=== PATIENT | female | born 1960 | race African-American/Black ===

== ENCOUNTER 2016-08-24 07:41 | Observation (INO) | payer BC ==
[2016-08-24] VITALS (9 sets, daily range): BP systolic 106–129; BP diastolic 70–80
[~2016-08-24] VITALS: Ht 168.9 cm; Wt 88.5 kg
[~2016-08-24 07:41] MED LIST: BIOT1TAB12 PO; CHOL10003 PO; CINN500C PO; COCO1000 PO; FENTANYL PF 100 MCG/2 ML VIAL. IV PRN; IV RINGERS,LACTATED 1000ML 1,000 ML IV SCH; LIDOCAINE 1% 1 ML SYRINGE. ID PRN; MULT-246 PO; OMEG1CAP16 PO; ONDANSETRON PF 4 MG/2 ML VIAL. IV PRN; PROCHLORPERAZINE 10 MG/2 ML VIAL. IV PRN; VIT1TABL43 PO
[2016-08-24] MEDS ORDERED: ACETAMINOPHEN INTRAVENOUS 100 ML IV ONE (07:55)
[2016-08-24] MEDS ORDERED: MIDAZOLAM HCL 2 MG/2 ML VIAL. ONE (08:12)
[2016-08-24] MEDS ORDERED: LIDOCAINE 2% 100 MG/5 ML DISP.SYRIN. ONE (08:12)
[2016-08-24] MEDS ORDERED: ROCURONIUM 50 MG/5 ML VIAL. ONE (08:12)
[2016-08-24] MEDS ORDERED: PROPOFOL 20 ML IV ONE (08:12)
[2016-08-24] MEDS ORDERED: FENTANYL PF 250 MCG/5 ML VIAL. ONE (08:12)
[2016-08-24] MEDS ORDERED: DEXAMETHASONE SOD PHOS 20 MG/5 ML VIAL. ONE (08:13)
[2016-08-24] MEDS ORDERED: ONDANSETRON PF 4 MG/2 ML VIAL. ONE (08:13)
[2016-08-24 08:28] LABS: BASO % 1 % (0-3); EOS % 4 % (0-3); HEMATOCRIT 41.1 % (36.0-47.0); HEMOGLOBIN 13.9 g/dL (12.0-15.5); LYMPH # 2.5 x10^3/uL (1.0-4.8); LYMPH % 42 % (24-48); MEAN CORPUSCULAR HEMOGLOBIN 31 pg (25-35); MEAN CORPUSCULAR HGB CONC 34 g/dL (31-37); MEAN CORPUSCULAR VOLUME 90 fL (79-100); MONO % 11 % (0-9); NEUT % 43 % (31-73); PLATELET COUNT 215 x10^3/uL (140-400); RED BLOOD COUNT 4.54 x10^6/uL (3.50-5.40); RED CELL DISTRIBUTION WIDTH 13.3 % (11.5-14.5); WHITE BLOOD COUNT 5.9 x10^3/uL (4.0-11.0)
[2016-08-24] MEDS ORDERED: CLINDAMYCIN 600MG PREMIX 50 ML IV ONE (08:30)
[2016-08-24] MEDS ORDERED: BUPIVACAINE-EPI 0.25%-1:200000 50 ML VIAL. INJ ONE (09:27)
[2016-08-24] MEDS ORDERED: LIDOCAINE 1%/EPI 1:100,000 20 ML VIAL. IJ ONE (09:27)
[2016-08-24] MEDS ORDERED: ESTROGENS, CONJ VAGINAL CREAM 30GM TUBE. VG ONE (10:10)
[2016-08-24] MEDS ORDERED: NEOSTIGMINE METHYLSULFATE 5 MG/5 ML SYRINGE. ONE (10:11)
[2016-08-24] MEDS ORDERED: GLYCOPYRROLATE 1 MG/5 ML VIAL. ONE (10:11)
[2016-08-24] MEDS ORDERED: KETOROLAC 30 MG/ML SYRINGE FOR OR. INJ ONE (10:22)
[2016-08-24] MEDS ORDERED: SEVOFLURANE 61 TO 120 MINUTES. IH ONE (10:29)
--- NOTE | 2016-08-24 10:34 | PDOC ---
BRIEF OPERATIVE NOTE Pre-Op Diagnosis 1. Fibroids 2. PMB Post-Op Diagnosis Same Procedure Performed LAVH & BSO Surgeon Dr. Amador Anesthesia Type: General Blood Loss 100 ml Specimens Obtained uterus, cervix, naif. fallopian tubes and naif. ovaries Findings enlarged, fibroid uterus; nml fallopian tubes and ovaries naif. Complications none Additional Remarks pt. LINA Rodriguez Jr, MD Aug 24, 2016 10:33
[2016-08-24] MEDS ORDERED: ZOLPIDEM 5 MG TABLET. PO PRN (10:45)
[2016-08-24] MEDS ORDERED: DEXTROSE 50% 25 GM / 50ML DISP.SYRIN. IV PRN (10:45)
[2016-08-24] MEDS ORDERED: 0.9 % SODIUM CHLORIDE 10 ML DISP.SYRIN. IV PRN (10:45)
[2016-08-24] MEDS ORDERED: SIMETHICONE 80 MG TAB.CHEW PO PRN (10:45)
[2016-08-24] MEDS ORDERED: KETOROLAC TROMETHAMINE 30 MG/ML SYRINGE. IV PRN (10:45)
[2016-08-24] MEDS ORDERED: PROCHLORPERAZINE 10 MG/2 ML VIAL. IV PRN (10:45)
[2016-08-24] MEDS ORDERED: ONDANSETRON PF 4 MG/2 ML VIAL. IV PRN (10:45)
[2016-08-24] MEDS ORDERED: DIPHENHYDRAMINE 50 MG/ML VIAL IV PRN (10:45)
[2016-08-24] MEDS ORDERED: CALCIUM CARBONATE 500 MG TAB.CHEW PO PRN (10:45)
[2016-08-24] MEDS ORDERED: DIPHENHYDRAMINE HCL 25 MG CAPSULE PO PRN (10:45)
[2016-08-24] MEDS: FENTANYL PF 100 MCG/2 ML VIAL. IV PRN ×2 (10:58→11:05)
[2016-08-24] MEDS ORDERED: ESTROGENS, CONJ VAGINAL CREAM 30GM TUBE. ONE (12:24)
[2016-08-24] MEDS ORDERED: BUPIVACAINE-EPI 0.25%-1:200000 50 ML VIAL. ONE (12:24)
[2016-08-24] MEDS ORDERED: LIDOCAINE 1%/EPI 1:100,000 20 ML VIAL. ONE (12:24)
[2016-08-24] MEDS: GABAPENTIN 300 MG CAPSULE. PO SCH ×2 (14:00→21:35)
[2016-08-24] MEDS: OXYCODONE/APAP 5/325 TABLET. PO PRN ×2 (17:26→21:35)
--- NOTE | 2016-08-24 17:41 | OP ---
DATE OF SURGERY: 08/24/2016 PREOPERATIVE DIAGNOSES: 1. Fibroid uterus. 2. Postmenopausal bleeding. POSTOPERATIVE DIAGNOSES: 1. Fibroid uterus. 2. Postmenopausal bleeding. PROCEDURE: LAVH and BSO. SURGEON: Lina Amador MD ANESTHESIA: GETA. ESTIMATED BLOOD LOSS: 100 mL. COMPLICATIONS: None. FINDINGS: Enlarged fibroid uterus, normal fallopian tubes and ovaries bilaterally. COMPLICATIONS: None. SUMMARY: A 56-year-old patient diagnosed with postmenopausal bleeding and multiple fibroids requiring LAVH and BSO. The patient was counseled on risks, benefits and expectations and voiced a clear understanding to proceed. DESCRIPTION OF PROCEDURE: The patient was taken to surgery suite and placed in dorsal lithotomy position, where she was prepped with Betadine solution as soon as she was prepped with soap solution for vaginal prep and ChloraPrep for abdominal prep. After adequate anesthesia, bivalve speculum was placed vaginally. The anterior lip of the cervix was grasped with a single tooth tenaculum. The Valtchev uterine manipulator was then placed through the cervix. The bivalve speculum was removed. Attention was now placed on abdomen. Small transverse skin incision was made 3 fingerbreadths below the left costal margin. The Veress needle was then placed through the subcostal margin incision site. The abdomen was allowed to insufflate up to 2 liters CO2 gas. The Veress needle was then removed, 5 mm trocar was placed. The scope was positioned. The uterus appeared enlarged with multiple fibroids. Fallopian tubes and ovaries appeared normal bilaterally. Incision was made in the left lower quadrant with a scalpel in which a 5 mm trocar was placed. A third incision was made just below the umbilicus with scalpel, in which a 5 mm trocar was placed as well, with aid of graspers and EnSeal device, the left round ligament was coagulated and dissected. The left infundibulopelvic ligament was coagulated and dissected. Left broad ligament including the left uterine artery was coagulated and dissected. Same process took place with the right adnexa. Bladder flap was partially created with EnSeal device and blunt dissection. Suction irrigation was utilized to verify good hemostasis. Attention was now placed on the pelvis. Weighted speculum and curved Howes was placed vaginally and a single tooth tenaculum, Valtchev uterine manipulator were removed. Debra clamps were placed on the anterior and posterior lip of the cervix. The cervix was injected with 1% lidocaine with epinephrine in circumferential manner. Bovie cautery was utilized to circumscribe the cervix. The vaginal mucosa was dissected away from the lower uterine segment using blunt dissection with moist Ray-Red. The parametrial tissue was clamped bilaterally with curved Sharron clamps, cut and suture ligated with 2-0 Vicryl suture. Posterior cul-de-sac was entered sharply with curved Tran scissors. The long weighted speculum was placed. Uterosacral ligaments were clamped bilaterally, cut, and suture ligated. The cervix, uterus, bilateral fallopian tubes and ovaries were then removed in their entirety. A modified King's culdoplasty was performed incorporating the uterosacral ligaments bilaterally. The remainder of the vaginal cuff was reapproximated using 2-0 Vicryl suture in a [id number] manner. A Premarin soaked vaginal packing was then placed. Attention was once again placed on abdomen. The abdomen was insufflated with 2 liters of CO2 gas. The scope was positioned. The posterior vaginal cuff was visualized and hemostatic. All pedicles were hemostatic. This was verified with suction irrigation and small amount of normal saline was left in the posterior cul-de-sac. The trocars were then removed under direct visualization. The abdomen was allowed to deflate as much as possible along with mechanical manipulation. The three skin incisions were reapproximated using 4-0 Vicryl suture in subcuticular manner. Marcaine 0.25% with epinephrine was injected at each incision site. The patient tolerated the procedure well and was taken to recovery in stable condition. Sponge and needle counts correct x 3. LINA AMADOR MD DR: CAITLIN/sapphire JOB#: [id number] / [id number]
[2016-08-25] MEDS: OXYCODONE/APAP 5/325 TABLET. PO PRN ×3 (05:38→10:56)
[2016-08-25] MEDS: GABAPENTIN 300 MG CAPSULE. PO SCH (05:39)
[2016-08-25 06:07] LABS: BASO % 0 % (0-3); EOS % 1 % (0-3); HEMATOCRIT 34.3 % (36.0-47.0); HEMOGLOBIN 11.9 g/dL (12.0-15.5); LYMPH # 2.8 x10^3/uL (1.0-4.8); LYMPH % 30 % (24-48); MEAN CORPUSCULAR HEMOGLOBIN 31 pg (25-35); MEAN CORPUSCULAR HGB CONC 35 g/dL (31-37); MEAN CORPUSCULAR VOLUME 89 fL (79-100); MONO % 9 % (0-9); NEUT % 60 % (31-73); PLATELET COUNT 193 x10^3/uL (140-400); RED BLOOD COUNT 3.88 x10^6/uL (3.50-5.40); RED CELL DISTRIBUTION WIDTH 13.3 % (11.5-14.5); WHITE BLOOD COUNT 9.1 x10^3/uL (4.0-11.0)
--- NOTE | 2016-08-25 07:36 | PDOC ---
SURGICAL PROGRESS NOTE Subjective Pt. feeling well. Pain controlled. Tolerating liquids. Vital Signs Vital Signs Date Time Temp Pulse Resp B/P Pulse Ox O2 Delivery O2 Flow Rate FiO2 08/24/16 23:00 98.7 87 16 106/72 98.7 08/24/16 20:54 Room Air 10.0 08/24/16 15:00 100 I&O Intake and Output 08/25/16 07:00 Intake Total 3900 ml Output Total 2600 ml Balance 1300 ml Intake Oral 1100 ml IV Total 2150 ml Other 650 ml Output Urine Total 2500 ml Estimated Blood Loss 100 ml PATIENT HAS A BEASLEY: No General: Alert, Oriented X3, Cooperative HEENT: Atraumatic Lungs: Clear to auscultation Heart: Regular rate Abdomen: Normal bowel sounds, Soft, No masses Extremities: No edema Neuro: Normal gait Psych/Mental Status: Mental status NL Labs Laboratory Tests Test 08/24/16 08:02 08/25/16 05:00 White Blood Count 5.9x10^3/uL (4.0-11.0) 9.1x10^3/uL (4.0-11.0) Red Blood Count 4.54x10^6/uL (3.50-5.40) 3.88x10^6/uL (3.50-5.40) Hemoglobin 13.9g/dL (12.0-15.5) 11.9g/dL (12.0-15.5) Hematocrit 41.1% (36.0-47.0) 34.3% (36.0-47.0) Mean Corpuscular Volume 90fL (79-100) 89fL (79-100) Mean Corpuscular Hemoglobin 31pg (25-35) 31pg (25-35) Mean Corpuscular Hemoglobin Concent 34g/dL (31-37) 35g/dL (31-37) Red Cell Distribution Width 13.3% (11.5-14.5) 13.3% (11.5-14.5) Platelet Count 215x10^3/uL (140-400) 193x10^3/uL (140-400) Neutrophils (%) (Auto) 43% (31-73) 60% (31-73) Lymphocytes (%) (Auto) 42% (24-48) 30% (24-48) Monocytes (%) (Auto) 11% (0-9) 9% (0-9) Eosinophils (%) (Auto) 4% (0-3) 1% (0-3) Basophils (%) (Auto) 1% (0-3) 0% (0-3) Neutrophils # (Auto) 2.5x10^3uL (1.8-7.7) 5.5x10^3uL (1.8-7.7) Lymphocytes # (Auto) 2.5x10^3/uL (1.0-4.8) 2.8x10^3/uL (1.0-4.8) Monocytes # (Auto) 0.6x10^3/uL (0.0-1.1) 0.8x10^3/uL (0.0-1.1) Eosinophils # (Auto) 0.2x10^3/uL (0.0-0.7) 0.1x10^3/uL (0.0-0.7) Basophils # (Auto) 0.0x10^3/uL (0.0-0.2) 0.0x10^3/uL (0.0-0.2) Laboratory Tests Test 08/24/16 08:02 08/25/16 05:00 White Blood Count 5.9x10^3/uL (4.0-11.0) 9.1x10^3/uL (4.0-11.0) Red Blood Count 4.54x10^6/uL (3.50-5.40) 3.88x10^6/uL (3.50-5.40) Hemoglobin 13.9g/dL (12.0-15.5) 11.9g/dL (12.0-15.5) Hematocrit 41.1% (36.0-47.0) 34.3% (36.0-47.0) Mean Corpuscular Volume 90fL (79-100) 89fL (79-100) Mean Corpuscular Hemoglobin 31pg (25-35) 31pg (25-35) Mean Corpuscular Hemoglobin Concent 34g/dL (31-37) 35g/dL (31-37) Red Cell Distribution Width 13.3% (11.5-14.5) 13.3% (11.5-14.5) Platelet Count 215x10^3/uL (140-400) 193x10^3/uL (140-400) Neutrophils (%) (Auto) 43% (31-73) 60% (31-73) Lymphocytes (%) (Auto) 42% (24-48) 30% (24-48) Monocytes (%) (Auto) 11% (0-9) 9% (0-9) Eosinophils (%) (Auto) 4% (0-3) 1% (0-3) Basophils (%) (Auto) 1% (0-3) 0% (0-3) Neutrophils # (Auto) 2.5x10^3uL (1.8-7.7) 5.5x10^3uL (1.8-7.7) Lymphocytes # (Auto) 2.5x10^3/uL (1.0-4.8) 2.8x10^3/uL (1.0-4.8) Monocytes # (Auto) 0.6x10^3/uL (0.0-1.1) 0.8x10^3/uL (0.0-1.1) Eosinophils # (Auto) 0.2x10^3/uL (0.0-0.7) 0.1x10^3/uL (0.0-0.7) Basophils # (Auto) 0.0x10^3/uL (0.0-0.2) 0.0x10^3/uL (0.0-0.2) Problem List Problems Medical Problems: (1) Fibroid uterus Status: Acute (2) Post-menopausal bleeding Status: Acute Assessment/Plan A: POD#1 s/p LAVH & BSO P: D/c home. Problems: LINA BOWDEN Jr, MD Aug 25, 2016 07:36
--- NOTE | 2016-08-25 07:37 | DISCH ---
DISCHARGE INSTRUCTIONS Condition on Discharge Condition on Discharge: Stable Activity After Discharge Activity Instructions for Disc: Activity as tolerated Lifting Instructions after Dis: No heavy lifting Driving Instructions after Dis: Do not drive (No driving x 1 week) Diet after Discharge Diet after Discharge: Regular Contacting the [facility] after DC Call your doctor for: Concerns you may have Follow-Up Follow up with: Dr. Amador in 2 weeks. LINA AMADOR Jr, MD Aug 25, 2016 07:37
[2016-08-25] MEDS ORDERED: DOCU-27 PO (07:38)
[2016-08-25] MEDS ORDERED: IBUP-1060 PO (07:38)
[2016-08-25] MEDS ORDERED: OXYC-323 PO (07:38)
[2016-08-25 10:52] VITALS: BP 125/80
[2016-08-25 13:45] VITALS: BP 120/82
--- NOTE | 2016-08-30 15:36 | PATHOLOGY ---
PATHOLOGY REPORT * * * * * * * * FINAL DIAGNOSIS: Uterus with attached right fallopian tube and ovary and detached left fallopian tube and ovary, laparoscopic assisted vaginal hysterectomy with bilateral salpingo-oophorectomy: - ADENOCARCINOMA OF ENDOMETRIUM, ENDOMETRIOID TYPE, FIGO GRADE III, FORMING A TUMOR MASS OF THE POSTERIOR ENDOMYOMETRIUM MEASURING 4.3 CM IN GREATEST DIMENSION, WITH TUMOR INVASION OF THE OUTER ONE-HALF OF MYOMETRIUM. SEE COMMENT AND SYNOPTIC REPORT. - FOCAL LYMPHOVASCULAR TUMOR INVASION OF MYOMETRIUM. - Parametrial margins of resection negative for tumor. - Endocervix negative for tumor involvement. - Chronic cervicitis with focal squamous metaplasia. - Leiomyomas, uterine corpus, multiple. - Small left paratubal cyst. - Bilateral ovaries showing no significant pathologic abnormalities. Specimen: Uterine corpus SPECIMEN Procedure Procedure: Simple hysterectomy Additional Procedures: Bilateral salpingo-oophorectomy Specimen Integrity: Intact hysterectomy specimen Lymph Node Sampling: Not performed TUMOR Primary Tumor Site: Posterior endometrium Histologic Type: Endometrioid adenocarcinoma Histologic Grade: FIGO grade 3 Tumor Size: Greatest dimension (cm): 4.3 Tumor Extent Myometrial Invasion: Present -Depth of Myometrial Invasion: --Specify depth of invasion (mm): 15 -Myometrial Thickness: --Specify (mm): 19 Tumor Involvement of Cervix: Not involved Extent of Involvement of Other Organs: Right ovary -Not involved Left ovary -Not involved Right fallopian tube -Not involved Left fallopian tube -Not involved Right parametrium -Not involved Left parametrium -Not involved Peritoneal Ascitic Fluid: Not performed / unknown Accessory Tumor Findings Lymph-Vascular Invasion: Present MARGINS Margins: Uninvolved by invasive carcinoma LYMPH NODES Regional Lymph Nodes: No lymph nodes submitted or found STAGE (PTNM) Primary Tumor (pT): pT1b: Tumor invades greater than or equal to one-half of the myometrium Regional Lymph Nodes (pN) Category (pN): pNX: Cannot be assessed FIGO STAGE FIGO Stage: IB: Invasion equal to or more than half of the myometrium ADDITIONAL FINDINGS Additional Pathologic Findings: Other: Leiomyomas COMMENT: Sections of the uterine corpus reveal an invasive, FIGO grade III, nuclear grade 3 endometrial adenocarcinoma involving the posterior endomyometrium. The tumor invades into the outer one-half of the myometrium where the tumor focally involves 80% of the thickness of the posterior myometrial wall. There is a focus within the deep myometrial wall suspicious for lymphovascular tumor invasion. An immunoperoxidase stain for D2-40 is obtained and yields the following results: D2-40 (A10): presence of tumor within lymphovascular space confirmed The tumor is confined to the uterine corpus and does not involve the endocervix. The parametrial margins are negative for tumor. The case is also examined by Dr. Mayank Paez, who concurs with the diagnosis. The results are reported to Dr. Amador on 08/30/16 at 1:00 PM.. (JPM:all; d/t: 08/29-02/2017) REPORT ELECTRONICALLY SIGNED BY: Kush Mcknight M.D. DATE/TIME: 08/30/2016 15:35 * * * * * * * * GROSS PATHOLOGY: The specimen is received in formalin labeled "Chris Morehead, uterus, cervix, bilateral fallopian tubes, bilateral ovaries". Received is a 121 g, 8.3 x 5.5 x 5.9 cm uterus with attached cervix, detached left adnexa weighing 3 g, and attached right adnexa weighing 4 g. The uterine serosa is pink-weiss, smooth and glistening in appearance. The 0.3 cm cervical os is surrounded by pale solorio, smooth to disrupted ectocervical mucosa. The uterus is oriented using the peritoneal reflection and the anterior paracervical margin is inked black. The uterus is opened laterally to reveal a pale solorio endocervical canal measuring 2.2 cm in length. The endometrial cavity is tear-drop shaped measuring 5.5 cm in length by 3.3 cm in diameter. The endometrium is pale solorio, glistening to white-solorio, friable in appearance and measures up to 1.3 cm in thickness. Serial sectioning reveals a solorio-pink, trabeculated myometrium measuring up to 4.4 cm in thickness displaying multiple intramural fibroids (in the anterior aspect of the uterus) ranging in size from 0.5 to 3.8 cm. The left adnexa consists of a fimbriated fallopian tube measuring 1.5 cm in length by 0.5 cm in diameter attached to a 2.0 x 1.2 x 1.0 cm ovary. The fallopian tube appears grossly unremarkable and sectioning through the ovary reveals pale solorio, normal ovarian stroma. The right adnexa consists of a fimbriated fallopian tube measuring 2.7 cm in length by 0.5 cm in diameter attached to a 2.2 x 1.3 x 1.2 cm ovary. The fallopian tube appears grossly unremarkable and sectioning through the ovary reveals pale solorio, normal ovarian stroma. The specimen is submitted representatively as follows: A1 12:00 cervix A2 6:00 cervix A3 anterior endomyometrium A4-A5 posterior endomyometrium A6 fraud representative sections of fibroids A7 left adnexa A8 right adnexa. (CAA; 08/25/2016) After initial microscopic examination, the specimen is re-examined. The posterior aspect of the uterus, which displays white-solorio, friable endometrium, measures 4.3 x 2.8 x 1.4 cm in greatest dimensions (consistent with tumor). The full-thickness measurement of the posterior aspect of the uterus is 1.6 cm, with the endometrial tumor invading to a depth of 1.3 cm, and the myometrium ranging in thickness from 0.4 to 0.6 cm. The tumor extends to 0.4 cm from the serosal surface. Additional fraud representative sections are submitted as follows: A9-A10 additional full-thickness sections of posterior endomyometrium with minimal myometrial thickness submitted in cassette A9 A11 left parametrial margin, en face A12 right parametrial margin, en face A13 anterior lower uterine segment A14 posterior lower uterine segment. (CAA; 08/28/2016) INITIAL CPT CODE(S): A; 71324, 86803 Professional services performed by [facility] at [facility] [address] [place] [address] Technical services performed by [facility] at [address] [place] [address], [address], [place] [address]. SPECIMEN(S) RECEIVED: A.Uterus, cervix, bilateral fallopian tubes, bilateral ovaries CLINICAL HISTORY: Post menopausal bleeding, fibroids PATIENT: CHRIS ABREU /AGE: 701/23/1960 (Age: 56) PATIENT #: [id number] ALT CASE #: SPECIMEN COLLECTION DATE: 08/24/2016 SPECIMEN RECEIVED DATE: 08/24/2016 [facility] - [address] [address] - PHONE: [phone] * * * END OF REPORT * * *
== END 2016-08-25 14:15 | disposition home or self-care (01) ==
LOC: SURG 07:41 → 3 NORTH 10:45
PROVIDERS: ADMIT Obstetrics & Gynecology; ATTEND Obstetrics & Gynecology
DX: D25.9 Leiomyoma of uterus, unspecified (principal); N95.0 Postmenopausal bleeding
CPT/HCPCS: 36415; 58552; 85027; 86850; 86900; 86901; 88309; 88342; A4215; G0378; G0379; J0131; J0780; J1100; J1200; J1885; J2250; J2405; J2704; J2710; J3010; J3490; J7030; J7120; 88307; G0641